=== PATIENT | male | born 1975 | race Caucasian/White ===

== ENCOUNTER 2024-08-06 12:40 | Outpatient (AMB) | payer OTHER, SELFPAY ==
--- NOTE | 2024-08-06 12:44 | MHC.PC.OV ---
Vital Signs 08/06/24 12:45 Height 5 ft 9.09 in Weight 242 lb 4 oz BMI 35.7 BP 140/80 H Blood Pressure Location Lt brachial Position Sitting Pulse 84 Pulse Source Pulse Oximeter Temp 97.1 F Temp Source Temporal Artery Scan Pulse Oximetry (%) 98 Oxygen Delivery Method Room Air Intake Visit Reasons: establish care Intake Note: Patient is a new patient here to establish care for HTN. Transferring care from Dr Calixto . Medical records Have been requested and Have not received. Instructional Paraprofessional Required: No Risk Investigator: Not Required per policy Accompanied by: Self / Same As Patient Allergies No Known Allergies Allergy (Verified 08/06/24 13:11) Medication List - Last Reconciled 08/07/24 by ARCADIO Chatterjee amlodipine 10 mg PO DAILY losartan 100 mg PO DAILY Tobacco use date assessed: 08/06/24 Dental Screening Dental Screen Date: 08/06/24 Did you have a dental visit in the last 12 months?: No Did you have a dental problem in the last 6 months where you did not have access to dental care?: No Was dental information given to patient?: No HPI establish care HPI Details Previous PCP: Dr. Calixto Last visit: 2 years ago Last PE:2 years Specialist: n/a OBGYN: Past medical history: htn Medications: Family HX: Type 1 diabetes and heart disease (brother), end-stage renal (father)- at age 74 from sepsis due to infected dialysis port. Problem: The patient is a 48-year-old male who was presenting to establish care Patient reports that 3 weeks ago he weighed 255 lbs Reports that he changed his diet by stopped eating sugar, stopped drinking alcohol and has been losing weight with these changes He denies shortness of breath denies chest pain, denies heart palpitation or dizziness Denies abdominal pain or change in bowel habits Denies urinary symptoms The patient has hypertension: His blood pressure was 140/80 in office. Reinforced low-sodium diet [facility] Medical History (Updated 08/07/24 @ 22:33 by ARCADIO Chatterjee) End stage renal disease Heart disease Type 1 diabetes Surgical History No pertinent past surgical history Family History (Updated 08/07/24 @ 22:35 by ARCADIO Chatterjee) Father End stage renal disease Heart disease Type 1 diabetes Brother No problems noted. Social History Housing: House Alcohol intake: never Patient Tobacco Use Status: Former Tobacco user Tobacco use type: Cigar e-Cigarette/Vaping Use: Never Used Second Hand Smoke Exposure: Yes service: No Current occupational status: employed Cognitive needs: No Hearing needs: No Vision needs: No Questionnaire PHQ-9 Over the last 2 weeks, how often have you been bothered by any of the following problems? 1. Little interest or pleasure in doing things: not at all 2. Feeling down, depressed, or hopeless: not at all 3. Trouble falling or staying asleep, or sleeping too much: not at all 4. Feeling tired or having little energy: not at all 5. Poor appetite or overeating: not at all 6. Feeling bad about yourself - or that you are a failure or have let yourself or your family down: not at all 7. Trouble concentrating on things, such as reading the newspaper or watching television: not at all 8. Moving or speaking so slowly that other people could have noticed. Or the opposite - being so fidgety or restless that you have been moving around a lot more than usual: not at all 9. Thoughts that you would be better off or of hurting yourself in some way: not at all Total score: 0 Depression Screening Interpretation: Negative Depression Screening Done: Yes 45013 - PHQ-9 Billing: Yes Source: Developed by Drs. Byron Baig, Kerri Perales, Ash Cruz and colleagues, with an educational alana from [employer]. Thrive Questionnaire Date Thrive assessed: 08/06/24 I am a: Patient What is your living situation today?: I have a steady place to live Within the past 12 months, did the food you bought not last and you didn't have the money to get more?: Never true Within the past 12 months, did you worry whether your food would run out before you got money to buy more?: Never true Do you have trouble paying for medicines?: No Do you have trouble getting transportation to medical appointments?: No Do you have trouble paying your heating and electricity bill?: No Do you have trouble taking care of your child, family member or friend?: No Do you have trouble with day-to-day activities such as bathing, preparing meals, shopping, managing finances, etc.?: No Are you currently unemployed and looking for a job?: No Are you interested in more education?: No Please select the resources that you would like help with: None Currently or been in a relationship where the following occur: No concerns reported THRIVE Score: 0 AUDIT C Alcohol Use Questionnaire (AUDIT-C) 1. How often do you have a drink containing alcohol?: Monthly or less 2. How many drinks containing alcohol do you have on a typical day when you are drinking?: 1 or 2 3. How often do you have six or more drinks on one occasion?: Never Total Score: 1 JENSEN-7 AMB Questionnaire JENSEN-7 Date JENSEN - 7 assessed: 08/06/24 Feeling nervous, anxious, or on edge: 0 = Not at all Not being able to stop or control worryin = Not at all Worrying too much about different things: 0 = Not at all Trouble relaxin = Not at all Being so restless that it is hard to sit still: 0 = Not at all Becoming easily annoyed or irritable: 0 = Not at all Feeling afraid as if something awful might happen: 0 = Not at all Total JENSEN-7 score (0-4 normal; 5-9 mild; 10-14 moderate; 15-21 severe): 0 Source: Developed by Drs. Byron Baig, Kerri Perales, Ash Cruz and colleagues, with an educational alana from [employer]. JENSEN-7 Assessment Billing JENSEN-7 Assessment Tool: JENSEN-7 Assessment 57643 Review of Systems Const Details: Denies chills, Denies fatigue, Denies fever(s), Denies headache(s) and Denies weakness HEENT Denies change in vision, Denies dizziness, Denies headache(s), Denies hearing loss, Denies nasal congestion, Denies sinus pain, Denies sinus pressure and Denies sore throat Card Denies chest pain, Denies lightheadedness, Denies dyspnea and Denies other (palpitations) Resp Denies cough, Denies dyspnea and Denies wheezing GI Denies abdominal pain, Denies melena, Denies hematochezia, Denies change in bowel habits, Denies dyspepsia and Denies nausea Denies hematuria and Denies dysuria Musc Denies abnormal gait, Denies myalgias, Denies arthralgias, Denies numbness and Denies tingling Skin/Breast Denies rash, Denies unusual bruising and Denies wounds Neuro Denies abnormal gait, Denies dizziness, Denies headache(s), Denies memory loss, Denies numbness, Denies Sensory deficit (Neuro), Denies tingling and Denies weakness Psych Denies anxiety, Denies depression and Denies memory loss Endo Denies cold intolerance, Denies fatigue, Denies heat intolerance, Denies polydipsia and Denies polyuria Maged/Lymph Denies easy bleeding and Denies easy bruising Aller/Immun Denies wheezing Physical exam (Primary Care) Vital Signs: Last Vital Signs Temp 97.1 F 08/06/24 12:45 Pulse 84 08/06/24 12:45 BP 140/80 H 08/06/24 12:45 Pulse Ox 98 08/06/24 12:45 Oxygen Delivery Method Room Air 08/06/24 12:45 BMI result Body Mass Index 35.7 Tobacco/Smoking Status: Tobacco use Status Tobacco use date assessed 08/06/24 08/06/24 12:59 Patient Tobacco Use Status Former Tobacco user 08/06/24 12:59 Tobacco use type Cigar 08/06/24 12:59 e-Cigarette/Vaping Use Never Used 08/06/24 12:59 PHQ-9: PHQ-9 Score PHQ-9: Total score 0 08/06/24 13:22 Depression Screening Interpretation: Negative Thrive Assessment: Date of Thrive Assessment Date Thrive assessed 08/06/24 08/06/24 12:59 Currently or been in a relationship where the following occur: No concerns reported Const Other: General: no acute distress, well developed, alert and awake Nutritional Appearance: well nourished Orientation/consciousness: patient oriented x3 HENMT Head: Yes normocephalic and Yes atraumatic Ears: hearing grossly normal bilaterally and TM's normal bilaterally General nose exam: Normal external nose present and Normal nares present Mouth: Normal oral and palatal mucosa present and moist mucous membranes Eyes Pupils: Equal, round and reactive pupils present and Pupil accommodation reflex normal EOM: EOMs intact bilaterally Neck Neck: Yes normal visual inspection, Yes no lymphadenopathy and Yes trachea midline Thyroid: Thyroid normal Resp Effort & Inspection: normal respiratory effort Auscultation: clear to auscultation bilaterally Cardio Rate: regular rate Rhythm: regular rhythm Heart sounds: S1 normal heart sound present, S2 normal heart sound present, no gallops, no murmurs and no rubs GI Palpation (GI): Abdomen is soft and nontender to palpation Auscultation: normal bowel sounds General: Yes no CVA tenderness Back/Spine/Pelvis Back: no CVA tenderness Cervical Spine: cervical ROM normal and No Cervical spine tenderness Thoracic/Lumbar Spine: No lumbar tenderness palpation Skin General: warm and dry. Normal skin color. Normal skin turgor Lesions: no lesions Rashes: no rashes Trauma: no lacerations or abrasions Wounds: no wounds Nails: normal Neuro General: patient oriented x3, gait normal Cranial nerves: Yes Equal, round and reactive pupils present Cognition (Neuro): normal cognition Gait exam (Neuro): Normal gait present Extrem General: Yes normal to inspection, No edema and No calf tenderness Psych Appearance: grossly normal Affect: normal affect Attitude: cooperative Thought process: Normal thought process present Coding Level of Care Code New Pt Level 3 (06852) Diagnoses Hypertension, unspecified type I10 Hypertension type: unspecified Additional Codes PHQ-9 - 42210 - PHQ-9 Billing: Yes ([id number]) JENSEN-7 Assessment Billing - JENSEN-7 Assessment Tool: JENSEN-7 Assessment 53747 ([id number]) Time Spent (min) 36 Assessment & Plan Assessment & Plan (1) HTN (hypertension): Code(s): I10 - Essential (primary) hypertension Category: Medical Qualifiers: Hypertension type: unspecified Qualified Code(s): I10 - Essential (primary) hypertension Plan: Reinforced low-sodium diet Continue amlodipine 10 mg daily and losartan 100 mg daily Plan Patient to complete labs and return for physical in 3 weeks Orders: Orders Comprehensive [place]. Panel Fast 08/06/24 I10 - Essential (primary) hypertension, Z00.00 - Encounter for general adult medical examination without abnormal findings TSH reflex Free T4 08/06/24 I10 - Essential (primary) hypertension, Z00.00 - Encounter for general adult medical examination without abnormal findings Vitamin D 25-OH Total 08/06/24 I10 - Essential (primary) hypertension, Z00.00 - Encounter for general adult medical examination without abnormal findings Glucose Fasting 08/06/24 I10 - Essential (primary) hypertension, Z00.00 - Encounter for general adult medical examination without abnormal findings Complete Blood Count Auto Diff 08/06/24 I10 - Essential (primary) hypertension, Z00.00 - Encounter for general adult medical examination without abnormal findings Lipid Panel 08/06/24 I10 - Essential (primary) hypertension, Z00.00 - Encounter for general adult medical examination without abnormal findings UA CC w/rflx Micro + Cult 08/06/24 I10 - Essential (primary) hypertension, Z00.00 - Encounter for general adult medical examination without abnormal findings Medications: New amlodipine 10 mg PO DAILY 30 tabs 3RF losartan 100 mg PO DAILY 30 tabs 3RF
[2024-08-06 12:45] VITALS: BP 140/80; PULSE 84; TEMP 36.2; O2SAT 98; BMI 35.7
== END 2024-08-06 13:46 | disposition home or self-care (01) ==
DX: I10 Essential (primary) hypertension (principal)

== ENCOUNTER → 2024-08-06 12:40 | Outpatient (BNVA) | payer OTHER, SELFPAY | DX: I10 Essential (primary) hypertension (principal) | CPT/HCPCS: 96127; 99202 ==

== ENCOUNTER 2024-08-21 07:52 | Outpatient (REF) | payer OTHER, SELFPAY ==
[2024-08-21 09:56] LABS: MANUAL DIFF FLAG NO
[2024-08-21 10:02] LABS: Basophils Absolute Auto 0.1 X10*3/uL (0.0-0.2); Basophils Percent Auto 2.2 % (0-2); Eosinophils Absolute Auto 0.8 X10*3/uL (0.0-0.4); Hematocrit 44.6 % (42.0-52.0); Hemoglobin 14.8 g/dl (14.0-18.0); Imm Gran Abs Auto 0.02 X10*3/uL (0.00-0.03); Imm Gran Pct Auto 0.3 % (0.0-0.4); Lymphocytes Absolute Auto 1.9 X10*3/uL (1.2-4.9); Lymphocytes Percent Auto 32.3 % (20-40); Mean Corpuscular HGB Conc 33.2 g/dl (31.0-36.0); Mean Corpuscular Hemoglobin 27.8 pg (27.0-33.0); Mean Corpuscular Volume 83.7 fL (80.0-98.0); Mean Platelet Volume 10.1 fL (9.4-12.4); Monocytes Absolute Auto 0.6 X10*3/uL (0.1-1.2); Monocytes Percent Auto 10.9 % (2-11); Neutrophils Absolute Auto 2.4 x10*3/uL (2.0-8.3); Neutrophils Percent Auto 41.3 % (45-73); Platelet Count 383 X10*3/uL (160-400); Red Blood Count 5.33 X10*6/uL (4.60-5.80); Red Cell Distribution Width 13.8 % (11.0-16.0); White Blood Count 5.9 X10*3/uL (4.8-10.8)
[2024-08-21 10:03] LABS: Appearance Urine Cloudy; Color Urine Yellow; Glucose Urine UA Negative (Negative); Leukocyte Esterase Urine Negative (Negative); Nitrite Urine Negative (Negative); PH 5.5 (5.0-9.0); Urine Blood Negative (Negative); Urine Ketones Negative (Negative); Urine Protein Negative (Neg-Trace)
[2024-08-21 10:24] LABS: Alanine Aminotransferase 36 U/L (0-40); Albumin Level 4.5 g/dL (3.5-5.0); Alkaline Phosphatase 69 U/L (39-117); Anion Gap 11 (12-20); Aspartate Amino Transferase 27 U/L (5-37); Bilirubin Total 0.7 mg/dL (0.0-1.0); Blood Urea Nitrogen 12 mg/dL (9-16); Calcium 9.4 mg/dL (8.4-10.2); Carbon Dioxide 26 mmol/L (22-29); Chloride 106 mmol/L (96-108); Cholesterol 182 mg/dL (<200); Estimated Glomerular Filt Rate > 60; Glucose Fasting 98 mg/dL (60-99); HDL Cholesterol 53 mg/dL (>40); LDL Cholesterol Calculated 107 mg/dL (<100); Potassium 4.1 mmol/L (3.3-5.1); Sodium 139 mmol/L (135-145); Total Protein 7.6 g/dL (6.5-8.0); Triglycerides 114 mg/dL (<150)
[2024-08-21 10:34] LABS: TSH reflex Free T4 2.22 uIU/mL (0.32-4.0); Vitamin D 25-OH Total 36.1 ng/mL (>30)
== END 2024-08-21 07:53 | disposition home or self-care (01) ==
LOC: HO.HMGCLDS 07:52
DX: Z00.00 Encounter for general adult medical examination without abnormal findings (principal); I10 Essential (primary) hypertension
CPT/HCPCS: 36415; 80053; 80061; 81003; 82306; 84443; 85025

== ENCOUNTER 2024-08-27 09:13 | Outpatient (AMB) | payer OTHER, SELFPAY ==
--- NOTE | 2024-08-27 08:56 | MHC.PC.OV ---
Vital Signs 08/27/24 09:16 Height 5 ft 9.09 in Weight 241 lb BMI 35.5 BP 132/86 Blood Pressure Location Lt brachial Position Sitting Pulse 58 Pulse Source Pulse Oximeter Pulse Oximetry (%) 96 Oxygen Delivery Method Room Air Intake Visit Reasons: Annual 3 weeks Direct Support Staff Required: No Accompanied by: Self / Same As Patient Allergies No Known Allergies Allergy (Verified 08/27/24 09:27) Medication List - Last Reconciled 08/27/24 by ARCADIO Chatterjee amlodipine 10 mg PO DAILY losartan 100 mg PO DAILY Tobacco use date assessed: 08/27/24 Dental Screening Dental Screen Date: 08/27/24 Did you have a dental visit in the last 12 months?: Yes Did you have a dental problem in the last 6 months where you did not have access to dental care?: No Was dental information given to patient?: Patient has dentist HPI Annual 3 weeks HPI Details Patient is presenting for annual physical Dentist: 2 or 3 years Eye: Every two years-DOT physical--referral ophthalmology due to his eye blood pressure Snellen: Right: Left: Corrected vision: STI screening: Colonoscopy: Pap Smer:n/a PHQ-9:n/a Flu:declines COVID: x3 Tdap: given in left arm Diet: regular Exercise: working in construction Patient reports that he is feeling okay Reports that he has been cutting out all fast food, he is having protein shakes in the morning He is committed in fixing in his blood pressure naturally if he can He reports intermittent heart burn that he has used to fixing with a glass of milk However, since she started cutting out fast food out of his diet, his heartburn has subsided He reports taking a spoon full of on refined virgin olive oil daily, reports that he read that this could help his good cholesterol Discussed with patient about putting in ophthalmology referral He reports that when his blood pressure has increased, he also gets a pressure in his left eye Left eye stye: We will order erythromycin ointment [facility] Medical History (Updated 08/27/24 @ 15:17 by ARCADIO Chatterjee) End stage renal disease Heart disease Type 1 diabetes Surgical History No pertinent past surgical history Family History Father End stage renal disease Heart disease Type 1 diabetes Brother No problems noted. Social History Housing: House Alcohol intake: never Patient Tobacco Use Status: Former Tobacco user Tobacco use type: Cigar e-Cigarette/Vaping Use: Never Used Second Hand Smoke Exposure: Yes service: No Current occupational status: employed Cognitive needs: No Hearing needs: No Vision needs: No Questionnaire PHQ-9 Over the last 2 weeks, how often have you been bothered by any of the following problems? 1. Little interest or pleasure in doing things: not at all 2. Feeling down, depressed, or hopeless: not at all 3. Trouble falling or staying asleep, or sleeping too much: not at all 4. Feeling tired or having little energy: not at all 5. Poor appetite or overeating: not at all 6. Feeling bad about yourself - or that you are a failure or have let yourself or your family down: not at all 7. Trouble concentrating on things, such as reading the newspaper or watching television: not at all 8. Moving or speaking so slowly that other people could have noticed. Or the opposite - being so fidgety or restless that you have been moving around a lot more than usual: not at all 9. Thoughts that you would be better off or of hurting yourself in some way: not at all Total score: 0 Depression Screening Interpretation: Negative Depression Screening Done: Yes 08986 - PHQ-9 Billing: Yes Source: Developed by Drs. Byron Baig, Kerri Perales, Ash Cruz and colleagues, with an educational alana from [employer]. Thrive Questionnaire Date Thrive assessed: 08/27/24 I am a: Patient What is your living situation today?: I have a steady place to live Within the past 12 months, did the food you bought not last and you didn't have the money to get more?: Never true Within the past 12 months, did you worry whether your food would run out before you got money to buy more?: Never true Do you have trouble paying for medicines?: No Do you have trouble getting transportation to medical appointments?: No Do you have trouble paying your heating and electricity bill?: No Do you have trouble taking care of your child, family member or friend?: No Do you have trouble with day-to-day activities such as bathing, preparing meals, shopping, managing finances, etc.?: No Are you currently unemployed and looking for a job?: No Are you interested in more education?: No Please select the resources that you would like help with: None Currently or been in a relationship where the following occur: No concerns reported THRIVE Score: 0 AUDIT C Alcohol Use Questionnaire (AUDIT-C) 1. How often do you have a drink containing alcohol?: Monthly or less 2. How many drinks containing alcohol do you have on a typical day when you are drinking?: 1 or 2 3. How often do you have six or more drinks on one occasion?: Never Total Score: 1 JENSEN-7 AMB Questionnaire JENSEN-7 Date JENSEN - 7 assessed: 08/27/24 Feeling nervous, anxious, or on edge: 0 = Not at all Not being able to stop or control worryin = Not at all Worrying too much about different things: 0 = Not at all Trouble relaxin = Not at all Being so restless that it is hard to sit still: 0 = Not at all Becoming easily annoyed or irritable: 0 = Not at all Feeling afraid as if something awful might happen: 0 = Not at all Total JENSEN-7 score (0-4 normal; 5-9 mild; 10-14 moderate; 15-21 severe): 0 Source: Developed by Drs. Byron Baig, Kerri Perales, Ash Cruz and colleagues, with an educational alana from [employer]. Review of Systems Const Denies headache(s) Eyes Denies loss of vision ENT Denies vertigo, Denies dizziness, Denies headache(s) and Denies sore throat Card Denies chest pain, Denies leg edema and Denies lightheadedness Resp Denies cough, Denies hemoptysis and Denies wheezing GI Denies abdominal pain, Denies melena, Denies constipation, Denies diarrhea and Denies vomiting Denies dysuria, Denies urinary frequency and Denies urinary urgency Musc Denies arthralgias, Denies joint swelling, Denies numbness and Denies tingling Neuro Denies Abnormal speech present, Denies behavioral changes, Denies vertigo, Denies dizziness, Denies headache(s), Denies loss of vision, Denies memory loss, Denies numbness and Denies tingling Psych Denies anxiety, Denies behavioral changes, Denies depression, Denies memory loss and Denies panic attacks Maged/Lymph Denies easy bleeding and Denies easy bruising Aller/Immun Denies wheezing Physical exam (Primary Care) Vital Signs: Last Vital Signs Pulse 58 08/27/24 09:16 BP 132/86 08/27/24 09:16 Pulse Ox 96 08/27/24 09:16 Oxygen Delivery Method Room Air 08/27/24 09:16 BMI result Body Mass Index 35.5 Tobacco/Smoking Status: Tobacco use Status Tobacco use date assessed 08/27/24 08/27/24 09:20 Patient Tobacco Use Status Former Tobacco user 08/27/24 08:56 Tobacco use type Cigar 08/27/24 08:56 e-Cigarette/Vaping Use Never Used 08/27/24 08:56 PHQ-9: PHQ-9 Score PHQ-9: Total score 0 08/27/24 12:42 Depression Screening Interpretation: Negative Thrive Assessment: Date of Thrive Assessment Date Thrive assessed 08/27/24 08/27/24 09:20 Currently or been in a relationship where the following occur: No concerns reported Const General: healthy appearing, no acute distress, alert and awake Nutritional Appearance: well nourished Orientation/consciousness: oriented to person, oriented to place and oriented to time HENMT Ears: TM's normal bilaterally General nose exam: Normal nasal mucous membranes and turbinates present Eyes Eyelids: Yes eyelid abnormality (left eye stye) Conjunctivae: conjunctivae normal Sclerae: sclerae normal Pupils: Equal, round and reactive pupils present Neck Neck: Yes no lymphadenopathy and Yes no JVD Thyroid: Thyroid normal Carotids: no bruits Resp Effort & Inspection: normal respiratory effort and not tachypneic Auscultation: no crackles, no rales, no rhonchi and no wheezes Cardio Rate: regular rate Rhythm: regular rhythm Heart sounds: no murmurs and normal S1 and S2 GI Palpation (GI): Soft to palpation, nontender, no hepatomegaly and no splenomegaly Auscultation: normal bowel sounds General: Yes no CVA tenderness Back/Spine/Pelvis Back: no CVA tenderness Cervical Spine: cervical ROM normal and No cervical muscular tenderness Thoracic/Lumbar Spine: thoracic and lumbar spine normal to inspection and No lumbar spinal tenderness Skin General skin exam: dry skin and other (multiple flat dark brown spots to upper back) Neuro General: oriented to person, oriented to place and oriented to time Cranial nerves: Yes Equal, round and reactive pupils present Speech: No Abnormal speech present Gait exam (Neuro): Normal gait present Motor exam (neuro): no tremor noted Extrem General: Yes capillary refill normal, Yes no pedal edema and Yes no calf tenderness Right upper extremity: full ROM and normal capillary refill Left upper extremity: full ROM and normal capillary refill Right lower extremity: full ROM; no edema Left lower extremity: full ROM; no edema Psych Mental Status: mental status grossly normal Speech and movement: Normal speech and movement present Affect: normal affect Attitude: cooperative Thought process: Normal thought process present Immunizations Boostrix Tdap 2.5 Lf unit-8 mcg-5 Lf/0.5 mL intramuscular syringe Performing Provider: ARCADIO Chatterjee [place] [facility] Administered by: ANNE Landeros on 08/27/24 09:48 Dose Route Admin Location Dispensed Lot Number Expiration Date [facility] Pleat Taper 0.5 mL IM Left Deltoid 0.5 mL [id number] 10/06/26 [id number] [employer] VIS Given Date VIS Provided VIS Publication Date 08/27/24 Single Vaccine 21 Eligibility Eligibility Date Funding Source Not [facility] Eligible 08/27/24 Private Results Reviewed Results Reviewed: Laboratory Tests 08/21/24 08/21/24 07:57 08:05 WBC 5.9 RBC 5.33 Hgb 14.8 Hct 44.6 MCV 83.7 Plt Count 383 Sodium 139 Potassium 4.1 Chloride 106 Carbon Dioxide 26 BUN 12 Creatinine 0.84 Estimated GFR > 60 Fasting Glucose 98 AST 27 ALT 36 Triglycerides 114 Cholesterol 182 LDL Cholesterol, Calc 107 H HDL Cholesterol 53 25-OH Vitamin D Total 36.1 TSH 2.22 Urine Color Yellow Urine Appearance Cloudy Urine pH 5.5 Ur Specific Vandiver 1.020 Urine Protein Negative Urine Glucose (UA) Negative Urine Ketones Negative Urine Blood Negative Urine Nitrite Negative Ur Leukocyte Esterase Negative Coding Level of Care Code Est Pt Prev Care 40-64y(86939) Diagnoses Annual physical exam Z00.00 Hypertension, unspecified type I10 Hypertension type: unspecified Hordeolum externum of left upper eyelid H00.014 Eyelid: upper Hordeolum type: externum Elevated LDL cholesterol level E78.00 Additional Codes PHQ-9 - 25059 - PHQ-9 Billing: Yes ([id number]) Time Spent (min) 37 Assessment & Plan Assessment & Plan (1) Annual physical exam: Code(s): Z00.00 - Encounter for general adult medical examination without abnormal findings Category: Medical Plan: Reviewed preventative guidelines and recent labs with the patient (2) HTN (hypertension): Code(s): I10 - Essential (primary) hypertension Category: Medical Qualifiers: Hypertension type: unspecified Qualified Code(s): I10 - Essential (primary) hypertension Plan: Reinforced low-sodium diet Continue amlodipine 10 mg daily, losartan 100 mg daily (3) Hordeolum of left eye: Code(s): H00.016 - Hordeolum externum left eye, unspecified eyelid Category: Medical Qualifiers: Eyelid: upper Hordeolum type: externum Qualified Code(s): H00.014 - Hordeolum externum left upper eyelid Plan: Erythromycin 0.5 ophthalmic eye ointment q.i.d. (4) Elevated LDL cholesterol level: Code(s): E78.00 - Pure hypercholesterolemia, unspecified Category: Medical Plan: LDL 107 reinforced low cholesterol diet/activity as tolerated Orders: Orders Comprehensive [place]. Panel Fast 3 Months E78.00 - Pure hypercholesterolemia, unspecified, I10 - Essential (primary) hypertension TDaP Immunization Today Z23 - Encounter for immunization Lipid Panel 3 Months E78.00 - Pure hypercholesterolemia, unspecified, I10 - Essential (primary) hypertension Medications: New erythromycin 0.5 inches ophthalmic (eye) QID 50 grams 0RF H00.016 - Hordeolum externum left eye, unspecified eyelid Refilled amlodipine 10 mg PO DAILY 30 tabs 3RF losartan 100 mg PO DAILY 30 tabs 3RF
[2024-08-27 09:16] VITALS: BP 132/86; PULSE 58; O2SAT 96; BMI 35.5
== END 2024-08-27 10:04 | disposition home or self-care (01) ==
DX: Z00.00 Encounter for general adult medical examination without abnormal findings (principal); I10 Essential (primary) hypertension; H00.014 Hordeolum externum left upper eyelid; E78.00 Pure hypercholesterolemia, unspecified; Z23 Encounter for immunization

== ENCOUNTER → 2024-08-27 09:13 | Outpatient (BNVA) | payer OTHER, SELFPAY | DX: Z00.00 Encounter for general adult medical examination without abnormal findings (principal); Z23 Encounter for immunization; H00.014 Hordeolum externum left upper eyelid; E78.00 Pure hypercholesterolemia, unspecified | CPT/HCPCS: 90471; 90715; 96127; 99396 ==

== ENCOUNTER 2024-11-26 08:06 | Outpatient (AMB) | payer OTHER, SELFPAY ==
--- NOTE | 2024-11-26 08:28 | MHC.PC.OV ---
Vital Signs 11/26/24 08:33 Height 5 ft 9 in Weight 244 lb BMI 36.0 BP 151/92 H Blood Pressure Location Lt brachial Position Sitting Respiration 18 Pulse 56 Pulse Source Pulse Oximeter Temp 97.2 F Pulse Oximetry (%) 96 Oxygen Delivery Method Room Air Intake Visit Reasons: jon Mixing Supervisor Required: No Publications Writer: Not Required per policy Accompanied by: Self / Same As Patient Allergies No Known Allergies Allergy (Verified 11/26/24 08:54) Medication List - Last Reconciled 11/26/24 by ARCADIO Chatterjee amlodipine 10 mg PO DAILY 90 days losartan 100 mg PO DAILY Tobacco use date assessed: 11/26/24 Dental Screening Dental Screen Date: 08/27/24 HPI jon HPI Details The patient is a 49 year old male presenting for chronic conditions states that he went to the [place] [facility] to get his labs drawn There is no lab results noted in the chart and the orders are still active Reports that he will go back tomorrow to find out what happened Add that he will fast, in case, he has to get is blood drawn again Reports that he had never had a colonoscopy because he is not a fan of the procedure He is willing to try the cologuard instead BP is elevated in office, reports that he had 2 cups of strong coffee prior to coming to the is appt Needs refill on both BP medications today Denies chest pain/sob/heart palpitation No abdominal pain/changes in bowel habits Denies urinary symptoms PFSH Medical History (Updated 08/27/24 @ 15:17 by ARCADIO Chatterjee) End stage renal disease Heart disease Type 1 diabetes Surgical History No pertinent past surgical history Family History Father End stage renal disease Heart disease Type 1 diabetes Brother No problems noted. Social History Housing: House Alcohol intake: never Patient Tobacco Use Status: Former Tobacco user Tobacco use type: Cigar e-Cigarette/Vaping Use: Never Used Second Hand Smoke Exposure: Yes service: No Current occupational status: employed Cognitive needs: No Hearing needs: No Vision needs: No Questionnaire Thrive Questionnaire Date Thrive assessed: 08/06/24 I am a: Patient What is your living situation today?: I have a steady place to live Within the past 12 months, did the food you bought not last and you didn't have the money to get more?: Never true Within the past 12 months, did you worry whether your food would run out before you got money to buy more?: Never true Do you have trouble paying for medicines?: No Do you have trouble getting transportation to medical appointments?: No Do you have trouble paying your heating and electricity bill?: No Do you have trouble taking care of your child, family member or friend?: No Do you have trouble with day-to-day activities such as bathing, preparing meals, shopping, managing finances, etc.?: No Are you currently unemployed and looking for a job?: No Are you interested in more education?: No Please select the resources that you would like help with: None Currently or been in a relationship where the following occur: No concerns reported THRIVE Score: 0 JENSEN-7 AMB Questionnaire JENSEN-7 Date JENSEN - 7 assessed: 08/27/24 Source: Developed by Drs. Byron Baig, Kerri Perales, Ash Cruz and colleagues, with an educational alana from [employer]. Review of Systems Const Denies headache(s) Eyes Denies loss of vision ENT Denies vertigo, Denies dizziness, Denies headache(s) and Denies sore throat Card Denies chest pain, Denies leg edema and Denies lightheadedness Resp Denies cough, Denies hemoptysis and Denies wheezing GI Denies abdominal pain, Denies melena, Denies constipation, Denies diarrhea and Denies vomiting Denies dysuria, Denies urinary frequency and Denies urinary urgency Musc Denies arthralgias, Denies joint swelling, Denies numbness and Denies tingling Neuro Denies Abnormal speech present, Denies behavioral changes, Denies vertigo, Denies dizziness, Denies headache(s), Denies loss of vision, Denies memory loss, Denies numbness and Denies tingling Psych Denies anxiety, Denies behavioral changes, Denies depression, Denies memory loss and Denies panic attacks Maged/Lymph Denies easy bleeding and Denies easy bruising Aller/Immun Denies wheezing Physical exam (Primary Care) Vital Signs: Last Vital Signs Temp 97.2 F 11/26/24 08:33 Pulse 56 11/26/24 08:33 Resp 18 11/26/24 08:33 BP 151/92 H 11/26/24 08:33 Pulse Ox 96 11/26/24 08:33 Oxygen Delivery Method Room Air 11/26/24 08:33 BMI result Body Mass Index 36.0 Tobacco/Smoking Status: Tobacco use Status Tobacco use date assessed 11/26/24 11/26/24 08:39 Patient Tobacco Use Status Former Tobacco user 11/26/24 08:39 Tobacco use type Cigar 11/26/24 08:39 e-Cigarette/Vaping Use Never Used 11/26/24 08:39 Thrive Assessment: Date of Thrive Assessment Date Thrive assessed 08/06/24 11/26/24 08:39 Currently or been in a relationship where the following occur: No concerns reported Const General: healthy appearing, no acute distress, alert and awake Nutritional Appearance: well nourished Orientation/consciousness: oriented to person, oriented to place and oriented to time HENMT Ears: TM's normal bilaterally General nose exam: Normal nasal mucous membranes and turbinates present Eyes Conjunctivae: conjunctivae normal Sclerae: sclerae normal Pupils: Equal, round and reactive pupils present Neck Neck: Yes no lymphadenopathy and Yes no JVD Thyroid: Thyroid normal Carotids: no bruits Resp Effort & Inspection: normal respiratory effort and not tachypneic Auscultation: no crackles, no rales, no rhonchi and no wheezes Cardio Rate: regular rate Rhythm: regular rhythm Heart sounds: no murmurs and normal S1 and S2 GI Palpation (GI): Soft to palpation, nontender, no hepatomegaly and no splenomegaly Auscultation: normal bowel sounds Skin General skin exam: no rashes or lesions noted and dry skin Neuro General: oriented to person, oriented to place and oriented to time Cranial nerves: Yes Equal, round and reactive pupils present Speech: No Abnormal speech present Gait exam (Neuro): Normal gait present Motor exam (neuro): no tremor noted Extrem Right upper extremity: full ROM Left upper extremity: full ROM Right lower extremity: full ROM; no edema Left lower extremity: full ROM; no edema Psych Mental Status: mental status grossly normal Speech and movement: Normal speech and movement present Affect: normal affect Attitude: cooperative Thought process: Normal thought process present Coding Level of Care Code Est Pt Level 3 (26482) Diagnoses Hypertension, unspecified type I10 Hypertension type: unspecified Elevated LDL cholesterol level E78.00 Time Spent (min) 33 Assessment & Plan Assessment & Plan (1) HTN (hypertension): Code(s): I10 - Essential (primary) hypertension Category: Medical Qualifiers: Hypertension type: unspecified Qualified Code(s): I10 - Essential (primary) hypertension Plan: Encouraged DASH diet and activity as tolerated-goal systolic is less than 130 mmhg Refrain from alcohol use and if you smoke, smoking cessation is strongly advised Continue amlodipine 10 mg daily, losartan a panel 100 mg daily (2) Elevated LDL cholesterol level: Code(s): E78.00 - Pure hypercholesterolemia, unspecified Category: Medical Plan: Last LDL was 109, reports completing ordered lipid and month ago, no results in the chart. He is planning on going tomorrow to get this done if needs be Discussed lifestyle modifications including dietary changes and physical activity Plan Return in 3 months HTN/HLD don't drink coffee prior to this appt Orders: Orders Lipid Panel 3 Months E78.00 - Pure hypercholesterolemia, unspecified, I10 - Essential (primary) hypertension Complete Blood Count Auto Diff 3 Months E78.00 - Pure hypercholesterolemia, unspecified, I10 - Essential (primary) hypertension Comprehensive Met. Panel 3 Months E78.00 - Pure hypercholesterolemia, unspecified, I10 - Essential (primary) hypertension TSH reflex Free T4 3 Months E78.00 - Pure hypercholesterolemia, unspecified, I10 - Essential (primary) hypertension Referrals Cologuard Test Z12.11 - Encounter for screening for malignant neoplasm of colon, Z12.12 - Encounter for screening for malignant neoplasm of rectum Medications: Changed From amlodipine 10 mg PO DAILY 30 tabs 3RF To amlodipine 10 mg PO DAILY 90 days 90 tabs 3RF Refilled losartan 100 mg PO DAILY 90 tabs 3RF
[2024-11-26 08:33] VITALS: BP 151/92; PULSE 56; RESP 18; TEMP 36.2; O2SAT 96; BMI 36.0
== END 2024-11-26 09:12 | disposition home or self-care (01) ==
LOC: HO.HMCH 08:07
DX: I10 Essential (primary) hypertension (principal); E78.00 Pure hypercholesterolemia, unspecified

== ENCOUNTER → 2024-11-26 08:06 | Outpatient (BNVA) | payer OTHER, SELFPAY | DX: I10 Essential (primary) hypertension (principal); E78.00 Pure hypercholesterolemia, unspecified; Z79.899 Other long term (current) drug therapy | CPT/HCPCS: 99212 ==